=== PATIENT | male | born 1935 | race Caucasian/White ===

== ENCOUNTER 2017-11-03 10:14 | Emergency (ER) | payer MEDICARE ==
--- NOTE | 2017-11-03 12:08 | RAD ---
CHEST 1 VIEW WITH LEFT RIBS 3 VIEWs: Date: 11/03/17 HISTORY: Fall. Pain. FINDINGS: 1 VIEW CHEST: Enlarged cardiac silhouette. Pulmonary vessels are slightly prominent. Costophrenic angles are clear. No consolidation or masses. No pneumothorax. Left-sided transvenous defibrillator with lead position in right atrium, right ventricle, and coronary sinus is noted. LEFT RIBS 3 VIEWS: Limited evaluation due to motion degradation. No fracture. No cortical irregularity or periosteal dominga ction. IMPRESSION: 1. No evidence of a left rib fracture. 2. Cardiomegaly. 3. Atherosclerosis. POS: [facility]
== END 2017-11-03 12:07 | disposition home or self-care (01) ==
LOC: SCSER 10:14
DX: S20.212A Contusion of left front wall of thorax, initial encounter (principal); I10 Essential (primary) hypertension; F32.9 Major depressive disorder, single episode, unspecified; Z79.82 Long term (current) use of aspirin; Z79.899 Other long term (current) drug therapy; W19.XXXA Unspecified fall, initial encounter